=== PATIENT | female | born 1965 | race Caucasian/White ===

== ENCOUNTER 2016-09-30 16:40 | Emergency (ER) | payer OTHER | END 2016-09-30 19:27 | disposition home or self-care (01) | LOC: FER 16:40 | DX: S96.912A Strain of unspecified muscle and tendon at ankle and foot level, left foot, initial encounter (principal); E03.9 Hypothyroidism, unspecified; G89.29 Other chronic pain; M54.9 Dorsalgia, unspecified; E05.00 Thyrotoxicosis with diffuse goiter without thyrotoxic crisis or storm; F17.210 Nicotine dependence, cigarettes, uncomplicated; Z79.51 Long term (current) use of inhaled steroids; Z79.891 Long term (current) use of opiate analgesic; Z79.899 Other long term (current) drug therapy; X50.1XXA Overexertion from prolonged static or awkward postures, initial encounter; Y92.009 Unspecified place in unspecified non-institutional (private) residence as the place of occurrence of the external cause | CPT/HCPCS: 73630; 99283 ==

== ENCOUNTER 2020-10-23 03:15 | Emergency (ER) | payer OTHER ==
[~2020-10-23 03:15] MED LIST: FLOMAX 0.4 MG0.4 MG PO; FLOMAX0.4 MG PO; MEDROL 4MG DOSEP4 MG PO; NAPROSYN500 MG PO; PYRIDIUM200 M1 PO; ZOFRAN8 MG PO
[2020-10-23 03:46] LABS: EOSINOPHIL 5.8 % (0-5); HGB 13.7 g/dl (12.5-16.0); LYMPHOCYTE 30.6 % (15-48); MCH 32.8 pg (25.0-31.0); MCHC 35.1 g/dL (32.0-36.0); MCV 93.3 fL (78.0-100.0); MONOCYTE 7.2 % (0-12); MPV 9.7 fL (6.0-9.5); NRBC 0; PLT 380 K/uL (150-400); RBC 4.18 M/uL (4.20-5.40); RDW 12.9 % (11.5-14.0); WBC 13.6 K/uL (4.0-10.5)
[2020-10-23 03:56] LABS: BILIRUBIN NEGATIVE (NEGATIVE); BLOOD NEGATIVE Ery/uL (NEGATIVE); CLARITY CLEAR (CLEAR); COLOR YELLOW (YELLOW); GLUCOSE (U) NORMAL (NORMAL); LEUKOCYTES NEGATIVE Leu/uL (NEGATIVE); NITRITE NEGATIVE (NEGATIVE); PROTEIN NEGATIVE (NEGATIVE); SPECIFIC GRAVITY 1.015 (1.001-1.030); UROBILINOGEN 0.2 mg/dL (0.2-1.0)
[2020-10-23 04:02] LABS: ALBUMIN 3.9 g/dL (3.4-5.0); BILIRUBIN - TOTAL 0.3 mg/dL (0.2-1.0); BUN/CREAT RATIO (CALC) 18.2 RATIO; CREATININE 0.77 mg/dL (0.51-0.95); GLOBULIN (CALCULATION) 3.4 g/dL; POTASSIUM 3.6 mmol/L (3.5-5.1); TOTAL PROTEIN 7.3 g/dL (6.4-8.2)
[2020-10-23] MEDS ORDERED: ZOFRAN4 M1 PO (07:30)
== END 2020-10-23 07:45 | disposition home or self-care (01) ==
LOC: FER 03:15
PROVIDERS: Emergency Medicine
DX: E86.0 Dehydration (principal); R19.7 Diarrhea, unspecified; I10 Essential (primary) hypertension; F17.200 Nicotine dependence, unspecified, uncomplicated; Z98.890 Other specified postprocedural states; Z98.51 Tubal ligation status; Z20.822 Contact with and (suspected) exposure to COVID-19
CPT/HCPCS: 36415; 80053; 81003; 83690; 85025; J2405; J7030; Q9967; U0002

== ENCOUNTER → 2021-05-10 | Day surgery (SDC) | payer OTHER ==
[~2021-05-10] VITALS: Ht 167.6 cm; Wt 75.7 kg
[~2021-05-10] MED LIST changes: +ALLERGY RELIEF180 MG PO; +ATORVASTATIN CA40 MG PO; +BUSPIRONE HCL15 M1 PO; +DICLOFENAC SODI50 MG PO; +FLUTICASONE PRO16 GM; +HYDROCODON-ACE1 EAC2 PO; +LEVOTHYROXINE100 MCG PO; +METHOCARBAMOL500 MG PO; +PANTOPRAZOLE SO40 MG PO; +POTASSIUM CITR10 MEQ PO; +SERTRALINE HCL50 MG PO; +TIZANIDINE HCL4 MG PO; +VENTOLIN HFA18 GM INH; +ZOFRAN4 M1 PO
[2021-05-10 10:47] LABS: HCG (URINE) SCREEN NEGATIVE (NEGATIVE)
== END | disposition home or self-care (01) ==
LOC: FAS 10:15
PROVIDERS: Anesthesiology
DX: K62.1 Rectal polyp (principal); K63.5 Polyp of colon; F17.210 Nicotine dependence, cigarettes, uncomplicated; J45.909 Unspecified asthma, uncomplicated; G89.29 Other chronic pain; I10 Essential (primary) hypertension; E78.5 Hyperlipidemia, unspecified; E03.9 Hypothyroidism, unspecified; Z98.51 Tubal ligation status; K21.9 Gastro-esophageal reflux disease without esophagitis; K29.80 Duodenitis without bleeding; K29.70 Gastritis, unspecified, without bleeding; K57.30 Diverticulosis of large intestine without perforation or abscess without bleeding; K44.9 Diaphragmatic hernia without obstruction or gangrene
CPT/HCPCS: 84703; J1610; J2250; J2704; J7120